=== PATIENT | female | born 1960 | race Caucasian/White ===

== ENCOUNTER → 2018-09-11 10:34 | Outpatient (CLI) | payer BC, SELFPAY ==
--- NOTE | 2018-09-11 10:38 | MM_ITS ---
1. Pancreatic gland is within years] MM Dig screening mamm BI w/CAD ORDERING PHYSICIAN : Jay Tompkins MD PATIENT AGE: 58 years GENDER: Female COMPARISON: August 2013,,, July 2012, 2011, June 2010 INDICATION: Routine: SCREENING no hormones. No new complaints. Noncontributory family history TECHNIQUE: Standard CC and MLO images were obtained. R2 CAD reviewed. The additional MLO view left breast included FINDINGS: No significant change. Mild/moderate residual fibroglandular elements most evident at the central superior breast. RIGHT BREAST:No new areas of significant concern Minor Area of mild asymmetric density towards the lateral left breast on cc view dissipates on the MLO view and has been seen before with bruising LEFT BREAST: No significant new areas of concern. Follow-up in one year bilateral IMPRESSION: Stable bilateral mammogram No significant new areas of concern Moderate breast density Follow-up in one year recommended BI-RADS Category: 2 Benign Finding(s) RECOMMENDED FOLLOW-UP: 1YR 1 YEAR FOLLOW-UP (A letter has been sent to the patient regarding results of the study.) July 2011, June 2010, 2009
== END ==
PROVIDERS: PCP Family Medicine; Visit Provider Family Medicine
DX: Z12.31 Encounter for screening mammogram for malignant neoplasm of breast (principal)
CPT/HCPCS: 77067

== ENCOUNTER → 2021-04-16 12:36 | Outpatient (CLI) | payer BC, SELFPAY | PROVIDERS: PCP Family Medicine; Visit Provider Nurse Practitioner | DX: Z20.822 Contact with and (suspected) exposure to COVID-19 (principal) | CPT/HCPCS: C9803; U0003; U0005 ==

== ENCOUNTER → 2021-06-22 10:13 | Outpatient (CLI) | payer BC, SELFPAY ==
--- NOTE | 2021-06-22 10:15 | MM_ITS ---
PROCEDURE INFORMATION: Exam: MG Bilateral Screening 3D Mammography Exam date and time: 06/22/2021 10:15 AM Age: 61 years old Clinical indication: Screening. No family history of breast cancer. TECHNIQUE: Imaging protocol: Bilateral Screening tomosynthesis and 2D mammography including computer-aided detection (CAD) when performed. COMPARISON: No relevant prior studies available. Prior mammogram report from 11/30/2018 is provided and reported as BI-RADS 2.If prior mammograms are provided, I am happy to add an addendum. FINDINGS: MAMMOGRAPHY: Breast composition: The breast tissue is composed of scattered areas of fibroglandular density. Mass: None. Architectural distortion: None. Calcifications: No suspicious calcifications. Asymmetric density: Possible 1.5 cm asymmetry in the left breast upper quadrant, anterior 3rd, MLO view only. Skin thickening: None. Axillary adenopathy: None. IMPRESSION: Comparison to prior mammogram would be most helpful. If this is not provided in 2 weeks, please recall for left diagnostic full field true lateral projection and left breast ultrasound, for further evaluation of possible left breast asymmetry. ASSESSMENT: BI-RADS Category 0: Incomplete- Need Additional Imaging Evaluation and/or Prior Mammograms for Comparison
== END ==
PROVIDERS: PCP Family Medicine; Visit Provider Family Medicine
DX: Z12.31 Encounter for screening mammogram for malignant neoplasm of breast (principal)
CPT/HCPCS: 77063; 77067

== ENCOUNTER → 2021-07-03 11:30 | Outpatient (CLI) | payer BC, SELFPAY ==
[2021-07-03 13:55] LABS: Microalbumin < 6.000 mg/L (0-16.7)
[2021-07-03 14:17] LABS: Chloride 103 mmol/L (98-107); Potassium 4.3 mmoL/L (3.5-5.1); Sodium 138 mmol/L (136-145)
[2021-07-03 14:20] LABS: Alanine Aminotransferase 28 U/L (12-78); Albumin Level 4.4 g/dl (3.5-5.0); Albumin/Globulin Ratio 1.7 (1.1-1.8); Alkaline Phosphatase 121 U/L (38-126); Anion Gap 11.3 mEq/L (5-15); Aspartate Amino Transferase 31 U/L (14-36); Bilirubin,Total 0.9 mg/dl (0.2-1.3); Blood Urea Nitrogen 11 mg/dl (7-17); Calcium 8.6 mg/dl (8.4-10.2); Carbon Dioxide 28 mmol/L (22.0-30.0); Cholesterol 126 mg/dl (140-200); Estimated Glomerular Filt Rate 102 ml/min (>60); GFR (African American) 123 ML/MIN (>60); Globulin 2.6 g/dL (1.3-3.2); Glucose 98 mg/dl (74-100); Triglycerides 65 mg/dl (30-150); VLDL Cholesterol 13 mg/dL (0-40)
[2021-07-03 14:21] LABS: Chol/HDL Ratio 2.2 (1-3.5); HDL Cholesterol 58 mg/dl (40-60)
[2021-07-03 14:31] LABS: Direct LDL Cholesterol 56.35 mg/dL (100-129)
[2021-07-03 16:08] LABS: Hemoglobin A1C 5.6 % (4.0-6.0)
== END ==
PROVIDERS: Visit Provider Family Medicine
DX: I10 Essential (primary) hypertension (principal); E78.5 Hyperlipidemia, unspecified; E11.9 Type 2 diabetes mellitus without complications; Z79.84 Long term (current) use of oral hypoglycemic drugs
CPT/HCPCS: 36415; 80053; 80061; 82043; 83036

== ENCOUNTER → 2021-07-06 14:37 | Outpatient (CLI) | payer BC, SELFPAY | PROVIDERS: PCP Family Medicine; Visit Provider Nurse Practitioner Family | DX: R92.8 Other abnormal and inconclusive findings on diagnostic imaging of breast (principal) ==

== ENCOUNTER → 2021-12-17 10:00 | Outpatient (CLI) | payer BC, SELFPAY ==
[2021-12-17 10:52] LABS: Alanine Aminotransferase 31 U/L (12-78); Albumin/Globulin Ratio 1.4 (1.1-1.8); Alkaline Phosphatase 142 U/L (38-126); Anion Gap 11.7 mEq/L (5-15); Aspartate Amino Transferase 33 U/L (14-36); Bilirubin,Total 0.4 mg/dl (0.2-1.3); Blood Urea Nitrogen 13 mg/dl (7-17); Calcium 9.6 mg/dl (8.4-10.2); Carbon Dioxide 29 mmol/L (22.0-30.0); Chloride 103 mmol/L (98-107); Chol/HDL Ratio 2.5 (1-3.5); Cholesterol 139 mg/dl (140-200); Estimated Glomerular Filt Rate 85 ml/min (>60); GFR (African American) 103 ML/MIN (>60); Globulin 2.8 g/dL (1.3-3.2); Glucose 123 mg/dl (74-100); HDL Cholesterol 55 mg/dl (40-60); Potassium 4.7 mmoL/L (3.5-5.1); Sodium 139 mmol/L (136-145); Total Protein,Serum 6.8 g/dl (6.3-8.2); Triglycerides 86 mg/dl (30-150); VLDL Cholesterol 17 mg/dL (0-40)
[2021-12-17 14:37] LABS: Hemoglobin A1C 5.5 % (4.0-6.0)
[2021-12-18 11:03] LABS: Direct LDL Cholesterol 71 mg/dL (100-129)
== END ==
PROVIDERS: PCP Family Medicine; Visit Provider Family Medicine
DX: I10 Essential (primary) hypertension (principal); E11.9 Type 2 diabetes mellitus without complications; E78.5 Hyperlipidemia, unspecified; Z79.84 Long term (current) use of oral hypoglycemic drugs
CPT/HCPCS: 36415; 80053; 80061; 83036

== ENCOUNTER → 2022-06-14 08:38 | Outpatient (CLI) | payer BC, SELFPAY ==
[2022-06-14 09:51] LABS: Chloride 104 mmol/L (98-107); Potassium 4.1 mmoL/L (3.5-5.1); Sodium 138 mmol/L (136-145)
[2022-06-14 09:53] LABS: Alanine Aminotransferase 25 U/L (12-78); Alkaline Phosphatase 110 U/L (38-126); Aspartate Amino Transferase 31 U/L (14-36); Bilirubin,Total 0.8 mg/dl (0.2-1.3); Blood Urea Nitrogen 15 mg/dl (7-17); Estimated Glomerular Filt Rate 85 ml/min (>60); GFR (African American) 103 ML/MIN (>60)
[2022-06-14 09:54] LABS: Albumin/Globulin Ratio 1.5 (1.1-1.8); Anion Gap 8.1 mEq/L (5-15); Carbon Dioxide 30 mmol/L (22.0-30.0); Chol/HDL Ratio 2.4 (1-3.5); Cholesterol 110 mg/dl (140-200); Globulin 2.6 g/dL (1.3-3.2); Glucose 116 mg/dl (74-100); HDL Cholesterol 45 mg/dl (40-60); Total Protein,Serum 6.6 g/dl (6.3-8.2); Triglycerides 78 mg/dl (30-150); VLDL Cholesterol 16 mg/dL (0-40)
[2022-06-14 10:05] LABS: Direct LDL Cholesterol 55.42 mg/dL (100-129)
[2022-06-14 10:22] LABS: Hemoglobin A1C 5.5 % (4.0-6.0)
== END ==
PROVIDERS: PCP Family Medicine; Visit Provider Family Medicine
DX: I10 Essential (primary) hypertension (principal); E11.9 Type 2 diabetes mellitus without complications; E78.5 Hyperlipidemia, unspecified; Z79.84 Long term (current) use of oral hypoglycemic drugs
CPT/HCPCS: 36415; 80053; 80061; 83036

== ENCOUNTER → 2022-06-25 15:59 | Outpatient (CLI) | payer BC, SELFPAY ==
--- NOTE | 2022-06-25 16:04 | MM_ITS ---
PROCEDURE INFORMATION: Exam: MG Bilateral Screening 3D Mammography Exam date and time: 06/25/2022 4:01 PM Age: 62 years old Clinical indication: Screening examination TECHNIQUE: Imaging protocol: Bilateral Screening tomosynthesis and 2D mammography including computer-aided detection (CAD) when performed. COMPARISON: 1. MG MM DIG SCREENING MAMM BI W/CAD 06/22/2021 10:12 AM 2. MG DIG MAMM-SCREEN NATAN 09/11/2018 11:02 AM FINDINGS: MAMMOGRAPHY: Breast composition: There are scattered areas of fibroglandular density. Mass: None. Architectural distortion: None. Calcifications: No suspicious calcifications. Asymmetric density: None. Skin thickening: None. Axillary adenopathy: None. IMPRESSION: No mammographic evidence of malignancy. Annual screening is recommended unless otherwise clinically indicated. ASSESSMENT: BI-RADS Category 1: Negative
== END ==
PROVIDERS: PCP Family Medicine; Visit Provider Family Medicine
DX: Z12.31 Encounter for screening mammogram for malignant neoplasm of breast (principal)
CPT/HCPCS: 77063; 77067

== ENCOUNTER → 2022-12-24 10:01 | Outpatient (CLI) | payer BC, SELFPAY ==
[2022-12-24 10:49] LABS: Hemoglobin A1C 5.8 % (4.0-6.0)
[2022-12-24 11:40] LABS: Alanine Aminotransferase 27 U/L (12-78); Albumin/Globulin Ratio 1.4 (1.1-1.8); Alkaline Phosphatase 146 U/L (38-126); Anion Gap 12.3 mEq/L (5-15); Aspartate Amino Transferase 29 U/L (14-36); Bilirubin,Total 0.6 mg/dl (0.2-1.3); Blood Urea Nitrogen 14 mg/dl (7-17); Carbon Dioxide 26 mmol/L (22.0-30.0); Chloride 105 mmol/L (98-107); Chol/HDL Ratio 2.9 (1-3.5); Cholesterol 119 mg/dl (140-200); Estimated Glomerular Filt Rate 85 ml/min (>60); GFR (African American) 103 ML/MIN (>60); Globulin 2.8 g/dL (1.3-3.2); Glucose 117 mg/dl (74-100); HDL Cholesterol 41 mg/dl (40-60); Potassium 4.3 mmoL/L (3.5-5.1); Sodium 139 mmol/L (136-145); Total Protein,Serum 6.8 g/dl (6.3-8.2); Triglycerides 84 mg/dl (30-150); VLDL Cholesterol 17 mg/dL (0-40)
[2022-12-24 11:51] LABS: Direct LDL Cholesterol 56.89 mg/dL (100-129)
== END ==
PROVIDERS: PCP Family Medicine; Visit Provider Family Medicine
DX: I10 Essential (primary) hypertension (principal); E78.5 Hyperlipidemia, unspecified; E11.9 Type 2 diabetes mellitus without complications; Z79.84 Long term (current) use of oral hypoglycemic drugs
CPT/HCPCS: 36415; 80053; 80061; 83036

== ENCOUNTER 2023-05-20 15:22 | Outpatient (POV) | payer BC, SELFPAY | END 2023-05-20 23:59 | disposition home or self-care (01) | LOC: SC 15:22 | PROVIDERS: PCP Family Medicine; Visit Provider Dermatology | DX: Z00.00 Encounter for general adult medical examination without abnormal findings (principal) ==

== ENCOUNTER 2023-07-03 09:30 | Outpatient (CLI) | payer BC, SELFPAY ==
[2023-07-03 10:54] LABS: Alanine Aminotransferase 32 U/L (12-78); Albumin Level 4.1 g/dl (3.5-5.0); Albumin/Globulin Ratio 1.6 (1.1-1.8); Alkaline Phosphatase 100 U/L (38-126); Aspartate Amino Transferase 34 U/L (14-36); Bilirubin,Total 0.9 mg/dl (0.2-1.3); Blood Urea Nitrogen 10 mg/dl (7-17); Calcium 9.9 mg/dl (8.4-10.2); Carbon Dioxide 27 mmol/L (22.0-30.0); Chloride 104 mmol/L (98-107); Chol/HDL Ratio 2.6 (1-3.5); Cholesterol 119 mg/dl (140-200); Estimated Glomerular Filt Rate 101 ml/min (>60); GFR (African American) 123 ML/MIN (>60); Globulin 2.5 g/dL (1.3-3.2); Glucose 120 mg/dl (74-100); HDL Cholesterol 45 mg/dl (40-60); Sodium 139 mmol/L (136-145); Total Protein,Serum 6.6 g/dl (6.3-8.2); Triglycerides 74 mg/dl (30-150); VLDL Cholesterol 15 mg/dL (0-40)
[2023-07-03 11:05] LABS: Direct LDL Cholesterol 57.39 mg/dL (100-129)
== END 2023-07-03 23:59 ==
LOC: LAB 09:31
PROVIDERS: PCP Family Medicine; Visit Provider Family Medicine
DX: I10 Essential (primary) hypertension (principal); E11.9 Type 2 diabetes mellitus without complications; E78.5 Hyperlipidemia, unspecified
CPT/HCPCS: 36415; 80053; 80061

== ENCOUNTER 2023-07-10 12:39 | Outpatient (CLI) | payer BC, SELFPAY ==
--- NOTE | 2023-07-10 12:43 | MM_ITS ---
PROCEDURE INFORMATION: Exam: MG Bilateral Screening 3D Mammography Exam date and time: 07/10/2023 12:57 PM Age: 63 years old Clinical indication: Screening examination TECHNIQUE: Imaging protocol: Bilateral Screening tomosynthesis and 2D mammography including computer-aided detection (CAD) when performed. COMPARISON: 1. MG MM DIG SCREENING MAMM BI W/CAD 06/25/2022 4:01 PM 2. MG MM DIG SCREENING MAMM BI W/CAD 06/22/2021 10:12 AM FINDINGS: MAMMOGRAPHY: Breast composition: There are scattered areas of fibroglandular density. Mass: None. Architectural distortion: None. Calcifications: No suspicious calcifications. Asymmetric density: None. Skin thickening: None. Axillary adenopathy: None. IMPRESSION: No mammographic evidence of malignancy. Annual screening is recommended unless otherwise clinically indicated. ASSESSMENT: BI-RADS Category 1: Negative
== END 2023-07-10 23:59 ==
LOC: RAD 12:39
PROVIDERS: PCP Family Medicine; Visit Provider Family Medicine
DX: Z12.31 Encounter for screening mammogram for malignant neoplasm of breast (principal)
CPT/HCPCS: 77063; 77067

== ENCOUNTER 2023-12-31 09:49 | Outpatient (CLI) | payer BC, SELFPAY ==
[2023-12-31 10:01] LABS: Microscopic, Urine URINE MICROSCOPIC (MICROSCOPIC)
[2023-12-31 10:39] LABS: Alanine Aminotransferase 31 U/L (12-78); Albumin Level 3.7 g/dl (3.5-5.0); Albumin/Globulin Ratio 1.3 (1.1-1.8); Alkaline Phosphatase 106 U/L (38-126); Anion Gap 7.1 mEq/L (5-15); Aspartate Amino Transferase 32 U/L (14-36); Bilirubin,Total 0.7 mg/dl (0.2-1.3); Blood Urea Nitrogen 10 mg/dl (7-17); Calcium 9.1 mg/dl (8.4-10.2); Carbon Dioxide 29 mmol/L (22.0-30.0); Chloride 104 mmol/L (98-107); Chol/HDL Ratio 2.4 (1-3.5); Cholesterol 119 mg/dl (140-200); Estimated Glomerular Filt Rate 101 ml/min (>60); GFR (African American) 123 ML/MIN (>60); Globulin 2.9 g/dL (1.3-3.2); Glucose 119 mg/dl (74-100); HDL Cholesterol 50 mg/dl (40-60); Potassium 4.1 mmoL/L (3.5-5.1); Sodium 136 mmol/L (136-145); Total Protein,Serum 6.6 g/dl (6.3-8.2); Triglycerides 92 mg/dl (30-150); VLDL Cholesterol 18 mg/dL (0-40)
[2023-12-31 10:40] LABS: Appearance,Urine CLEAR (Clear); Bilirubin,Urine Negative (Negative); Blood, Urine TRACE-I (Negative); Color,Urine YELLOW (Yellow); Glucose,Urine (UA) Negative (Negative); Ketones,Urine Negative (Negative); Leukocyte Esterase,Urine Negative (Negative); Nitrate,Urine Negative (Negative); PH,Urine 7.5 (5.0-8.5); Protein,Urine Negative (Negative); Urobilinogen,Urine 0.2 EU/dl (0.2)
[2023-12-31 10:51] LABS: Direct LDL Cholesterol 52.78 mg/dL (100-129)
[2023-12-31 11:04] LABS: Bacteria,Urine Trace /lpf; RBC,Urine Occasional #/hpf (0-3); Squamous Epithelial Cell,Urine Occasional #/hpf (0-5)
[2023-12-31 11:19] LABS: Hemoglobin A1C 5.7 % (4.0-6.0)
== END 2023-12-31 23:59 | disposition home or self-care (01) ==
LOC: LAB 09:50
PROVIDERS: PCP Family Medicine; Visit Provider Family Medicine
DX: E11.69 Type 2 diabetes mellitus with other specified complication (principal); E78.5 Hyperlipidemia, unspecified; I10 Essential (primary) hypertension; Z79.84 Long term (current) use of oral hypoglycemic drugs
CPT/HCPCS: 36415; 80053; 80061; 81001; 83036

== ENCOUNTER 2024-08-03 10:00 | Outpatient (CLI) | payer BC, SELFPAY ==
[2024-08-03 10:10] LABS: Microscopic, Urine URINE MICROSCOPIC (MICROSCOPIC)
[2024-08-03 11:10] LABS: Albumin Level 4.1 g/dl (3.5-5.0); Chloride 104 mmol/L (98-107); Sodium 138 mmol/L (136-145)
[2024-08-03 11:11] LABS: Potassium 4.3 mmoL/L (3.5-5.1)
[2024-08-03 11:13] LABS: Alanine Aminotransferase 28 U/L (12-78); Albumin/Globulin Ratio 1.6 (1.1-1.8); Alkaline Phosphatase 113 U/L (38-126); Anion Gap 12.3 mEq/L (5-15); Aspartate Amino Transferase 30 U/L (14-36); Bilirubin,Total 0.9 mg/dl (0.2-1.3); Blood Urea Nitrogen 9 mg/dl (7-17); Calcium 8.8 mg/dl (8.4-10.2); Carbon Dioxide 26 mmol/L (22.0-30.0); Cholesterol 113 mg/dl (140-200); Estimated Glomerular Filt Rate 85 ml/min (>60); GFR (African American) 102 ML/MIN (>60); Globulin 2.6 g/dL (1.3-3.2); Glucose 111 mg/dl (74-100); Total Protein,Serum 6.7 g/dl (6.3-8.2); Triglycerides 78 mg/dl (30-150); VLDL Cholesterol 16 mg/dL (0-40)
[2024-08-03 11:14] LABS: Chol/HDL Ratio 2.1 (1-3.5); HDL Cholesterol 54 mg/dl (40-60)
[2024-08-03 11:17] LABS: Appearance,Urine CLEAR (Clear); Bilirubin,Urine Negative (Negative); Blood, Urine Negative (Negative); Color,Urine YELLOW (Yellow); Glucose,Urine (UA) Negative (Negative); Ketones,Urine Negative (Negative); Leukocyte Esterase,Urine Negative (Negative); Nitrate,Urine Negative (Negative); PH,Urine 7.5 (5.0-8.5); Protein,Urine Negative (Negative); Specific Gravity, Urine 1.015 (1.005-1.030); Urobilinogen,Urine 0.2 EU/dl (0.2)
[2024-08-03 11:25] LABS: Direct LDL Cholesterol 42.78 mg/dL (100-129)
[2024-08-03 11:37] LABS: Hemoglobin A1C 5.6 % (4.0-6.0)
== END 2024-08-03 23:59 | disposition home or self-care (01) ==
LOC: LAB 10:02
PROVIDERS: PCP Family Medicine; Visit Provider Family Medicine
DX: E78.5 Hyperlipidemia, unspecified (principal); E11.9 Type 2 diabetes mellitus without complications; I10 Essential (primary) hypertension
CPT/HCPCS: 36415; 80053; 80061; 81001; 83036

== ENCOUNTER 2024-12-27 15:42 | Outpatient (CLI) | payer BC, SELFPAY ==
--- OUTSIDE RECORDS SUMMARY | 2023-12-11 09:30 | XMS_ITS ---
Author Organization [facility] Address [address] [place] [id number] Care Team Providers Care Corn Husker Name Role Phone Kendy Tompkins Primary Care Provider Allergies No Known Allergies Results Component Value Reference Range Notes H-Lipid Panel Reviewed date:12/31/2023 03:39:50 PM Interpretation:see 12/31/23 Performing Lab: Notes/Report: see 12/31/23 H-CMP Reviewed date:12/31/2023 03:39:37 PM Interpretation:see 12/31/23 Performing Lab: Notes/Report: see 12/31/23 H-Glycohemoglobin A1C Reviewed date:12/31/2023 03:39:24 PM Interpretation:see 12/31/23 Performing Lab: Notes/Report: see 12/31/23 REASON FOR VISIT 6 months Medications Medication SIG (Take, Route, Frequency, Duration) Notes Start Date End Date Status Omeprazole 40 MG 1 cap(s) orally once a day prn Active Olmesartan Medoxomil 40 MG 1 tab(s) oral ly once a day Active OneTouch Ultra DIRECTED 09/17/2016 Ac tive metFORMIN HCl ER 500 MG 1 tab(s) orally once a day Active Metoprolol Tartrate 25 MG 1 tab(s) orall y Two times a day Active Eliquis 5 MG Take 1 tablet by ania twice daily for 90 days; Duration: 90 Active Atorvastatin Calcium 40 MG 1 tab(s) oral ly once a day Active Problems Problem Type SNOMED Code ICD Code Onset Dates Problem Status W/U Status Risk Notes Problem Type 2 diabetes mellitus with other specified complication (E11.69) Active confirmed Vital Signs Blood pressure systolic 124 mm Hg 12/11/19 24 Blood pressure diastolic 68 mm Hg 024 Heart Rate 66 /min 12/11/2023 Height 62 in 12/11/2023 Weight 202.8 lbs 12/11/2023 BMI 37.09 kg/m2 12/11/2023 Encounters Encounter Location Date Provider Diagnosis [facility] [address] [facility] [address], [place] [id number] 12/11/2023 Kendy Tompkins Type 2 diabetes chon itus with other specified complication E11.69 ; Essential hypertension I10 ; Type 2 diabetes mellitus without complication, without long-term current use of insulin E11.9 ; Dyslipidemia E78.5 ; Gastroesophageal reflux disease without esophagitis K21.9 ; History of CVA (cerebrovascular accident) Z86.73 and PFO (patent foramen ovale) Q21.1 Assessments Encounter Date Diagnosis (ICD Code) Assessment Notes Treatment Notes Treatment Clinical Notes Section Notes 12/11/2023 Type 2 diabetes mellitus with other specified complication (ICD-10 - E11.69) 12/11/2023 Essential hypertension (ICD-10 - I10) 12/11/2023 Type 2 diabetes mellitus without complication, without long-term current use of insulin (ICD-10 - E11.9) 12/11/2023 Dyslipidemia (ICD-10 - E78.5) 12/11/2023 Gastroesophageal reflux disease without esophagitis (ICD-10 - K21.9) 12/11/2023 History of CVA (cerebrovascular accident) (ICD-10 - Z86.73) 12/11/2023 PFO (patent foramen ovale) (ICD-10 - Q21.1) Plan Of Treatment Medication Medication Name Sig Start Date Stop Date Notes Omeprazole 40 MG 1 cap(s) orally once a day prn Olmesartan Medoxomil 40 MG 1 tab(s) orally once a day metFORMIN HCl ER 500 MG 1 tab(s) orally once a day Metoprolol Tartrate 25 MG 1 tab(s) orally Two times a day Atorvastatin Calcium 40 MG 1 tab(s) orally once a day Pending Test Test Name Order Date H-Microalbumine/Creatinine 12/11/2023 Next Appt Details Follow Up: 6 Months, Reason: Provider Name:Kendy Sutton, 06/21/2025 01:45:00 PM, [address], [address], [place], [id number], Progress Notes * RAMSES ZUÑIGADOB:1960 (64 yo F)Acc No.[id number]:12/11/2023 Progress Notes Patient: RAMSES CAMACHO Provider: Kendy Tompkins M.D. :1960 A ge:63 Y S ex:Female Date:12/11/2023 Address:[facility] [address], [place], [place] Subjective: * Chief Complaints: * 1 . 6 months. * HPI: C ardiology: Pt is here for ck/up. Pt is not fasting. Denies : Chest Pain. D enies : Short of Breath. D enies : Palpitations. States BP checks at home are consistently normal. E ndocrinology: She has been more compliant with diet but not successful with weight loss. She is not checking her blood sugar regularly at home. D ermatology: Since her last visit, she has had a basal cell carcinoma removed from the tip of her nose. This required a skin graft for closure. She has done well. * ROS: C ARDIOLOGY: no D izziness. n o C hest pain. G ASTROENTEROLOGY: no N ausea. n o V omiting. U ROLOGY: no D ifficulty urinating. n o B lood in urine. * Medical History: H ypertension, GERD, Type 2 Diabetes, Hyperlipidemia, Lt MCA Stroke - [facility], PFO- [facility], Declines repeat C-scope: 11/2021; 05/2022, Declines BMD - 05/2022. * Surgical History: R T Forearm Fatty Tumor Removed 2000, C-scope/ Dr. Whaley 2014, Basal cell carcinoma skin graft on tip of nose - 05/2023. * Hospitalization/Major Diagno stic Procedure: S troke, Paroxysmal A Fib 05/2019. * Family History: F ather: alive 82 yrs, diagnosed with Diabetes, Hypertension. M other: , low potassium, heart attack, diagnosed with Diabetes, Hypertension. 1 sister(s) . 1 son(s) . . Deacesed Brother- Lung Cancer, Sister- Diabetes. * Social History: C URRENT TOBACCO USE: No . C affeine: no, frequency:. Home smoke detector use: yes. Alcohol: No. * Medications: T aking OneTouch Ultra DIRECTED , Taking Atorvastatin Calcium 40 MG Tablet 1 tab(s) orally once a day , Taking metFORMIN HCl ER 500 MG Tablet Extended Release 24 Hour 1 tab(s) orally once a day , Taking Metoprolol Tartrate 25 MG Tablet 1 tab(s) orally Two times a day , Taking Olmesartan Medoxomil 40 MG Tablet 1 tab(s) orally once a day , Taking Omeprazole 40 MG Capsule Delayed Release 1 cap(s) orally once a day prn , Taking Eliquis 5 MG Tablet Take 1 tablet by mouth twice daily for 90 days , Medication List reviewed and reconciled with the patient * Allergies: N .K.D.A. Objective: * Vitals: W t:202.8, Temp:98.4, BP:124/68, HR:66, Nurse:JASE, Ht: 62, BMI:37.09. * Examination: C ardiology: General Appearance: p leasant, NAD. Weight loss noted. H EENT: s clera and conjunctiva clear, PERRLA, TM's normal, translucent. C arotid upstroke: n ormal, no bruits. H eart sounds: R RR, normal S1, S2. M urmur, click , gallop: n one. L ungs: c lear, no rales or wheezes. A bdomen: p ositive BS, soft, nontender. E xtremities: n o leg edema. Assessment: * Assessment: 1. T ype 2 diabetes mellitus with other specified complication - E11.69 (Primary) ?2. E ssential hypertension - I10 3 . T ype 2 diabetes mellitus without complication, without long-term current use of insulin - E11.9 4 . D yslipidemia - E78.5 5 . G astroesophageal reflux disease without esophagitis - K21.9 ? 6 . H istory of CVA (cerebrovascular accident) - Z86.73 7 . P FO (patent foramen ovale) - Q21.1 Plan: * Treatment: 2. T ype 2 diabetes mellitus without complication, without long-term current use of insulin Refill metFORMIN HCl ER Tablet Extended Release 24 Hour, 500 MG, 1 tab(s), orally, once a day, 90, Refills 1. 3. D yslipidemia Refill Atorvastatin Calcium Tablet, 40 MG, 1 tab(s), orally, once a day, 90, Refills 1. 4. G astroesophageal reflux disease without esophagitis Refill Omeprazole Capsule Delayed Release, 40 MG, 1 cap(s), orally, once a day prn, 90, Refills 1.? * Labs: * L ab: H-Microalbumine/Creatinine L ab: H-Lipid Panel (Collection Date & Time - 12/31/2023) s ee 12/31/23 L ab: H-CMP (Collection Date & Time - 12/31/2023) s ee 12/31/23 L ab: H-Glycohemoglobin A1C (Collection Date & Time - 12/31/2023) s ee 12/31/23 * Follow Up: 6 Months * Images: Billing Information: * Visit Code: 72263 Office Visit, Est Pt., Level 4. * Procedure Codes: * Electronic signature of Kendy Tompkins MD on 12/27/2024 at 03:44 PM EDT Sign off status: Pending * Provider: Kendy Tompkins M.D. Date: 0 12/11/2023 Generated for Nixoni ng/Nicoleg/eTransmitting on: 0 12/27/2024 03:44 PM EDT History and Physical Notes * HPI (History of Present Illness) Category Sub-Category Detail Notes Category Not es Cardiology Short of Breath States BP ch ecks at home are consistently normal Chest Pain Palpitations Examination Category Sub-Category Detail Notes Category Not es Cardiology Lungs: clear, no rales or wheezes HEENT: sclera and conjuncti va clear, PERRLA, TM's normal, translucent Heart sounds: RRR, normal S1, S2 Abdomen: positive BS, soft, n ontender Carotid upstroke: normal, no bruits Extremities: no leg edema Murmur, click , gallop: none General Appearance: pleasant, NAD. Weigh t loss noted
--- OUTSIDE RECORDS SUMMARY | 2024-06-17 09:30 | XMS_ITS ---
Author Organization [facility] Address [address] [place] [id number] Care Team Providers Care Hotel Operations Manager Name Role Phone Kendy Tompkins Primary Care Provider Allergies No Known Allergies Results Component Value Reference Range Notes H-Lipid Panel Reviewed date:08/04/2024 12:33:29 PM Interpretation: Performing Lab: Notes/Report: H-CMP Reviewed date:08/04/2024 12:33:14 PM Interpretation: Performing Lab: Notes/Report: H-Glycohemoglobin A1C Reviewed date:08/04/2024 12:32:58 PM Interpretation: Performing Lab: Notes/Report: REASON FOR VISIT 6 months Medications Medication SIG (Take, Route, Frequency, Duration) Notes Start Date End Date Status metFORMIN HCl ER 500 MG 1 tab(s) orally once a day Active Atorvastatin Calcium 40 MG 1 tab(s) oral ly once a day Active Eliquis 5 MG Take 1 tablet by [facility] twice daily for 90 days; Duration: 90 days Active Metoprolol Tartrate 25 MG 1 tab(s) orall y Two times a day Active OneTouch Ultra DIRECTED 09/17/2016 Ac tive Omeprazole 40 MG 1 cap(s) orally once a day prn Active Olmesartan Medoxomil 40 MG 1 tab(s) oral ly once a day Active Vital Signs Blood pressure systolic 138 mm Hg 06/17/19 25 Blood pressure diastolic 68 mm Hg 025 Heart Rate 71 /min 06/17/2024 Height 62 in 06/17/2024 Weight 201.8 lbs 06/17/2024 BMI 36.91 kg/m2 06/17/2024 Encounters Encounter Location Date Provider Diagnosis [facility] [address] [facility] [address] [place] [id number] 06/17/2024 Kendy Tompkins Type 2 diabetes chon itus [...] Treatment Notes Treatment Clinical Notes Section Notes 06/17/2024 Type 2 diabetes mellitus with other specified complication (ICD-10 - E11.69) 06/17/2024 Essential hypertension (ICD-10 - I10) 06/17/2024 Type 2 diabetes mellitus without complication, without long-term current use of insulin (ICD-10 - E11.9) 06/17/2024 Dyslipidemia (ICD-10 - E78.5) 06/17/2024 Gastroesophageal reflux disease without esophagitis (ICD-10 - K21.9) 06/17/2024 History of CVA (cerebrovascular accident) (ICD-10 - Z86.73) 06/17/2024 PFO (patent foramen ovale) (ICD-10 - Q21.1) Plan Of Treatment Medication Medication Name Sig Start Date Stop Date Notes metFORMIN HCl ER 500 MG 1 tab(s) orally once a day Atorvastatin Calcium 40 MG 1 tab(s) orally once a day Metoprolol Tartrate 25 MG 1 tab(s) orally Two times a day Omeprazole 40 MG 1 cap(s) orally once a day prn Olmesartan Medoxomil 40 MG 1 tab(s) orally once a day Pending Test Test Name Order Date H-Microalbumine/Creatinine 06/17/2024 Next Appt Details Follow Up: 6 Months, Reason: Provider Name:Kendy Sutton, 06/21/2025 01:45:00 PM, [address] [facility], [address], [place], [phone], Progress Notes * ANDREI ZUÑIGA:1960 (64 yo F)Acc No.[id number]:06/17/2024 Progress Notes Patient: RAMSES CAMACHO Provider: Kendy Tompkins M.D. :1960 A ge:64 Y S ex:Female Date:06/17/2024 Address:[address] [place] [address], [place], [place] Subjective: * Chief Complaints: * 1 . 6 months. * HPI: H PI: 64 year old female presents with c/o Patient is here today for?Pt is here today for a scheduled 6 month check up. She is not fasting. E ndocrinology: Blood sugar checks at home been consistently normal. Denies : Weight Gain. D enies : Nocturia. D enies : Polyuria. C ardiology: Blood pressure readings at home are normal. Denies : Chest Pain. D enies : Short of Breath. D enies : Palpitations. D enies : Leg Edema. G astroenterology: She is only using her omeprazole rarely as needed. * ROS: C ARDIOLOGY: no D izziness. [...] Allergies: N .K.D.A. Objective: * Vitals: W t:201.8, Temp:98.7, BP:138/68, HR:71, O2 Sat:99% on RA, Nurse:keyon, Ht: 62, BMI:36.91. * Examination: C ardiology: General Appearance: p leasant, NAD. . C arotid upstroke: n ormal, no bruits. [...] 4. G astroesophageal reflux disease without esophagitis Continue Omeprazole Capsule Delayed Release, 40 MG, 1 cap(s), orally, once a day prn. * Labs: * L ab: H-Lipid Panel (Collection Date & Time - 08/04/2024) ?Lab: H-CMP (Collection Date & Time - 08/04/2024)* see duplicate order ?Lab: H-Glycohemoglobin A1C (Collection Date & Time - 08/04/2024)* see duplicate order ?Lab: H-Microalbumine/Creatinine * Procedure Codes: 3 075F SYST BP GE 130 - 139MM HG, 3078F DIAST BP < 80 MM HG * Follow Up: 6 Months * Images: Billing Information: * Visit Code: 35178 Office Visit, Est Pt., Level 4. * Procedure Codes: 3075F SYST BP GE 130 - 139MM HG. 3078F DIAST BP < 80 MM HG. * Electronic signature of Kendy Tompkins MD on 12/27/2024 at 03:44 PM EDT Sign off status: Pending * Provider: Kendy Tompkins M.D. Date: 0 06/17/2024 Generated for Darrell padron/Jalen/Cierraitting on: 0 12/27/2024 03:44 PM EDT History and Physical Notes * HPI (History of Present Illness) Category Sub-Category Detail Notes Category Not es Endocrinology Weight Gain Polyuria Nocturia Cardiology Short of Breath Chest Pain Palpitations Leg Edema HPI Patient is here today for Pt is here today for a scheduled 6 month check up. She is not fasting Examination Category Sub-Category Detail Notes Category Not es Cardiology Lungs: clear, no rales or wheezes HEENT: Heart sounds: RRR, normal S1, S2 Abdomen: positive BS, soft, n ontender Carotid upstroke: normal, no bruits Extremities: no leg edema Murmur, click , gallop: none General Appearance: pleasant, NAD.
--- OUTSIDE RECORDS SUMMARY | 2024-12-16 09:30 | XMS_ITS ---
[facility] Address [address] [facility] [address] [facility] [address] [place] [id number] Care Team Providers Care Custom Shoemaker Name Role Phone Kendy Tompkins Primary Care Provider Allergies No Known Allergies REASON FOR VISIT 6 month check, Needs labs, mammogram, bone density screening, colon cancer screening, diabetic eye exam, & Tdap Medications Medication SIG (Take, Route, Frequency, Duration) Notes Start Date End Date Status Eliquis 5 MG Take 1 tablet by ania th twice daily; Duration: 90 Active Olmesartan Medoxomil 40 MG 1 tab(s) orally once a day Active Metoprolol Tartrate 25 MG 1 tab(s) orall y Two times a day Active Omeprazole 40 MG TAKE 1 CAPSULE BY MO UTH ONCE DAILY NEEDED; Duration: 90 Not-Taking Omeprazole 40 MG 1 cap(s) orally once a day prn Active metFORMIN HCl ER 500 MG 1 tab(s) orally once a day Active Atorvastatin Calcium 40 MG 1 tab(s) orally once a day Active OneTouch Ultra DIRECTED 09/17/2016 Ac tive Vital Signs Blood pressure systolic 128 mm Hg 12/17/19 25 Blood pressure diastolic 68 mm Hg 025 Heart Rate 68 /min 12/16/2024 Height 62 in 12/16/2024 Weight 204.2 lbs 12/16/2024 BMI 37.34 kg/m2 12/16/2024 Encounters Encounter Location Date Provider Diagnosis [facility] [address] [facility] [address] [facility] [address] [place] [id number] 12/16/2024 R Ag Leda Type 2 diabetes chon itus with other specified complication E11.69 ; Essential hypertension I10 ; Type 2 diabetes mellitus without complication, without long-term current use of insulin E11.9 ; Dyslipidemia E78.5 ; Gastroesophageal reflux disease without esophagitis K21.9 ; History of CVA (cerebrovascular accident) Z86.73 ; PFO (patent foramen ovale) Q21.1 and Breast cancer screening Z12.39 Assessments Encounter Date Diagnosis (ICD Code) Assessment Notes Treatment Notes Treatment Clinical Notes Section Notes 12/16/2024 Type 2 diabetes mellitus with other specified complication (ICD-10 - E11.69) 12/16/2024 Essential hypertension (ICD-10 - I10) 12/16/2024 Type 2 diabetes mellitus without complication, without long-term current use of insulin (ICD-10 - E11.9) 12/16/2024 Dyslipidemia (ICD-10 - E78.5) 12/16/2024 Gastroesophageal reflux disease without esophagitis (ICD-10 - K21.9) 12/16/2024 History of CVA (cerebrovascular accident) (ICD-10 - Z86.73) 12/16/2024 PFO (patent foramen ovale) (ICD-10 - Q21.1) 12/16/2024 Breast cancer screening (ICD-10 - Z12.39) Plan Of Treatment Medication Medication Name Sig Start Date Stop Date Notes Olmesartan Medoxomil 40 MG 1 tab(s) orally once a day Metoprolol Tartrate 25 MG 1 tab(s) orally Two times a day Omeprazole 40 MG 1 cap(s) orally once a day prn metFORMIN HCl ER 500 MG 1 tab(s) orally once a day Atorvastatin Calcium 40 MG 1 tab(s) orally once a day Pending Test Test Name Order Date Mammogram 12/16/2024 H-TSH 12/16/2024 H-Lipid Panel 12/16/2024 H-CMP 12/16/2024 H-Glycohemoglobin A1C 12/16/2024 Next Appt Details Follow Up: 6 Months, Reason: Provider Name:Kendy Sutton, 06/21/2025 01:45:00 PM, [address] [facility], [address], [place], [phone], Progress Notes * ANDREI ZUÑIGA:1960 (64 yo F)Acc No.[id number]:12/16/2024 Progress Notes Patient: RAMSES CAMACHO Provider: Kendy Tompkins M.D. :1960 A ge:64 Y S ex:Female Date:12/16/2024 Address:[address] [place] [address], [place] [address] Subjective: * Chief Complaints: * 1 . 6 month check. 2. Needs labs, mammogram, bone density screening, colon cancer screening, diabetic eye exam, & Tdap. * HPI: H PI: 64 year old female presents with c/o Patient is here today for?Pt is here today for a 6 month check up. Pt sts she is doing well and has no concerns at this time. * ROS: D ERMATOLOGY: no R jose. n o H lyric. G ASTROENTEROLOGY: no N ausea. n o V omiting. n o D iarrhea.? U ROLOGY: no D ifficulty urinating. n [...] F ather: alive 82 yrs, diagnosed with Hypertension, Diabetes. M other: , low potassium, heart attack, diagnosed with Hypertension, Diabetes. 1 sister(s) . 1 son(s) . . [...] tab(s) orally once a day , Taking Eliquis 5 MG Tablet Take 1 tablet by mouth twice daily , Not-Taking Omeprazole 40 MG Capsule Delayed Release TAKE 1 CAPSULE BY MOUTH ONCE DAILY NEEDED , Medication List reviewed and reconciled with the patient * Allergies: N .K.D.A. Objective: * Vitals: W t: 204.2, Temp: 98.7, BP: 128/68, HR: 68, O2 Sat: 94% on RA, Nurse: [facility], Ht: 62, BMI:37.34. * Examination: C ardiology: General Appearance: p [...] P FO (patent foramen ovale) - Q21.1 8 . B reast cancer screening - Z12.39 ? Plan: * Treatment: 2. T ype 2 [...] 1 cap(s), orally, once a day prn. 5. B reast cancer screening I maging: Mammogram * Labs: * L ab: H-Lipid Panel L ab: H-CMP L ab: H-TSH L ab: H-Glycohemoglobin A1C * Follow Up: 6 Months * Images: Billing Information: * Visit Code: 04148 Office Visit, Est Pt., Level 4. * Procedure Codes: * Electronic signature of Kendy Tompkins MD on 12/27/2024 at 03:43 PM EDT Sign off status: Pending * Provider: Kendy Tompkins M.D. Date: 0 12/16/2024 Generated for Darrell padron/Jalen/Cecilia on: 0 12/27/2024 03:43 PM EDT History and Physical Notes * HPI (History of Present Illness) Category Sub-Category Detail Notes Category Not es HPI Patient is here today for Pt is here today for a 6 month check up. Pt sts she is doing well and has no concerns at this time Examination Category Sub-Category Detail Notes Category Not es Cardiology Lungs: clear, no rales or wheezes HEENT: Heart sounds: RRR, normal S1, S2 Abdomen: positive BS, soft, n ontender Carotid upstroke: normal, no bruits Extremities: no leg edema Murmur, click , gallop: none General Appearance: pleasant, NAD.
--- NOTE | 2024-12-27 15:44 | MM_ITS ---
PROCEDURE INFORMATION: Exam: MG Bilateral Screening 3D Mammography Exam date and time: 12/27/2024 3:51 PM Age: 64 years old Clinical indication: Screening examination TECHNIQUE: Imaging protocol: Bilateral Screening tomosynthesis and 2D mammography including computer-aided detection (CAD) when performed. COMPARISON: 1. MG MM DIG SCREENING MAMM BI W/CAD 07/10/2023 12:57 PM 2. MG MM DIG SCREENING MAMM BI W/CAD 06/25/2022 4:01 PM FINDINGS: MAMMOGRAPHY: Breast composition: There are scattered areas of fibroglandular density. Mass: None. Architectural distortion: None. Calcifications: No suspicious calcifications. Asymmetric density: None. Skin thickening: None. Axillary adenopathy: None. IMPRESSION: No mammographic evidence of malignancy. Annual screening is recommended unless otherwise clinically indicated. ASSESSMENT: BI-RADS Category 1: Negative.
--- OUTSIDE RECORDS SUMMARY | 2024-12-27 15:44 | XMS_ITS | Patient Health Record ---
[facility] [address] [place] [id number] Care Team Providers Care Supervisor [employer] Name Role Phone Kendy Tompkins Primary Care Provider Allergies No Known Allergies Results Component Value Reference Range Notes H-Lipid Panel Reviewed date:08/04/2024 12:33:29 PM Interpretation: Performing Lab: Notes/Report: H-CMP Reviewed date:08/04/2024 12:33:14 PM Interpretation: Performing Lab: Notes/Report: H-Glycohemoglobin A1C Reviewed date:08/04/2024 12:32:58 PM Interpretation: Performing Lab: Notes/Report: H-Glycohemoglobin A1C Reviewed date:08/05/2024 08:37:04 AM Interpretation:Normal Performing Lab: Notes/Report: HGBA1C 5.6 4.0-6.0 % < 6% Non-Diabetic Level < 7% Controlled Diabetic Level > 8% Poorly Controlled Diabetic Level H-CMP Reviewed date:08/05/2024 08:37:04 AM Interpretation:gluc 111 Performing Lab: Notes/Report: NA 138 136-145 mmol/L K 4.3 3.5-5.1 mmoL/L CL 104 98-107 mmol/L CO2 26 22.0-30.0 mmol/L GAP 12.3 5-15 mEq/L BUN 9 7-17 mg/dl CREATT 0.70 0.52-1.04 mg/dl GFRAA 102 >60 ML/MIN EGFR 85 >60 ml/min GLU 111 74-100 mg/dl CA 8.8 8.4-10.2 mg/dl BILIT 0.9 0.2-1.3 mg/dl AST 30 14-36 U/L ALT 28 12-78 U/L TP 6.7 6.3-8.2 g/dl ALB 4.1 3.5-5.0 g/dl GLOB 2.6 1.3-3.2 g/dL AGRATIO 1.6 1.1-1.8 ALP 113 38-126 U/L H-Lipid Panel Reviewed date:08/05/2024 08:37:04 AM Interpretation:chol 113, dldl 42.78 Performing Lab: Notes/Report: Patient Fasting? N TRIG 78 30-150 mg/dl CHOL 113 140-200 mg/dl DLDL 42.78 100-129 mg/dL VLDL 16 0-40 mg/dL HDL 54 40-60 mg/dl CHLHDL 2.1 1-3.5 H-UA Reviewed date:08/05/2024 08:37:04 AM Interpretation:Normal Performing Lab: Notes/Report: UCOL YELLOW Yellow UAPP CLEAR Clear UPH 7.5 5.0-8.5 USG 1.015 1.005-1.030 UPRO Negative Negative UGLU Negative Negative UKET Negative Negative UBLD Negative Negative UNIT Negative Negative UBIL Negative Negative UURO 0.2 0.2 EU/dl ULEU Negative Negative UMICU URINE MICROSCOPIC MICROSCOPIC URBC None 0-3 #/hpf UWBC None 0-3 #/hpf USQEPI None 0-5 #/hpf UBACT None NONE /lpf H-UA Reviewed date:01/01/2024 08:42:48 AM Interpretation: Performing Lab: Notes/Report: UCOL YELLOW Yellow UAPP CLEAR Clear UPH 7.5 5.0-8.5 USG 1.010 1.005-1.030 UPRO Negative Negative UGLU Negative Negative UKET Negative Negative UBLD TRACE-I Negative UNIT Negative Negative UBIL Negative Negative UURO 0.2 0.2 EU/dl ULEU Negative Negative UMICU URINE MICROSCOPIC MICROSCOPIC URBC Occasional 0-3 #/hpf UWBC None 0-3 #/hpf USQEPI Occasional 0-5 #/hpf UBACT Trace NONE /lpf H-Lipid Panel Reviewed date:01/01/2024 08:42:48 AM Interpretation:chol 119, dldl 53 Performing Lab: Notes/Report: Patient Fasting? Y TRIG 92 30-150 mg/dl CHOL 119 140-200 mg/dl DLDL 52.78 100-129 mg/dL VLDL 18 0-40 mg/dL HDL 50 40-60 mg/dl CHLHDL 2.4 1-3.5 H-CMP Reviewed date:01/01/2024 08:42:48 AM Interpretation:gluc 119 Performing Lab: Notes/Report: NA 136 136-145 mmol/L K 4.1 3.5-5.1 mmoL/L CL 104 98-107 mmol/L CO2 29 22.0-30.0 mmol/L GAP 7.1 5-15 mEq/L BUN 10 7-17 mg/dl CREATT 0.60 0.52-1.04 mg/dl GFRAA 123 >60 ML/MIN EGFR 101 >60 ml/min GLU 119 74-100 mg/dl CA 9.1 8.4-10.2 mg/dl BILIT 0.7 0.2-1.3 mg/dl AST 32 14-36 U/L ALT 31 12-78 U/L TP 6.6 6.3-8.2 g/dl ALB 3.7 3.5-5.0 g/dl GLOB 2.9 1.3-3.2 g/dL AGRATIO 1.3 1.1-1.8 ALP 106 38-126 U/L H-Glycohemoglobin A1C Reviewed date:01/01/2024 08:42:48 AM Interpretation:5.7 Performing Lab: Notes/Report: HGBA1C 5.7 4.0-6.0 % < 6% Non-Diabetic Level < 7% Controlled Diabetic Level > 8% Poorly Controlled Diabetic Level Reason For Referral No Information Medications Medication SIG (Take, Route, Frequency, Duration) Notes Start Date End Date Status metFORMIN HCl ER 500 MG 1 tab(s) orally once a day Active Atorvastatin Calcium 40 MG 1 tab(s) orally once a day Active Olmesartan Medoxomil 40 MG 1 tab(s) orally once a day Active Eliquis 5 MG Take 1 tablet by ania twice daily; Duration: 90 Active Metoprolol Tartrate 25 MG 1 tab(s) orall y Two times a day Active Omeprazole 40 MG TAKE 1 CAPSULE BY MO UTH ONCE DAILY NEEDED; Duration: 90 Not-Taking Omeprazole 40 MG 1 cap(s) orally once a day prn Active OneTouch Ultra DIRECTED 09/17/2016 Ac tive Immunizations Vaccine Route Administration Date Status Comme nts Shingrix Unknown 04/17/2022 Administered Shingrix Unknown 06/28/2022 Administered Prevnar (PCV20) Unknown 09/11/2021 Administered PNEUMOVAX 23 VACCINE Unknown 03/10/2020 Administered Fluzone Quad (6months&older) IM Intramuscular 02/12/2019 Administered Fluzone Quad (6months&older) Unknown 12/19/2020 Administered Fluzone PF Quad (6-35 months) Unknown 12/30/2019 Administered Fluzone PF Quad (6-35 months) Unknown 02/10/2022 Administered COVID 19 Moderna Unknown 06/21/2020 Administered COVID 19 Moderna Unknown 07/19/2020 Administered COVID 19 Moderna Unknown 02/10/2021 Administered COVID 19 Moderna Unknown 07/31/2021 Administered Problems Problem Type SNOMED Code ICD Code Onset Dates Problem Status W/U Status Risk Notes Problem Essential hypertension (15319195) Essential hypertension (I10) Active confirmed Problem History of cerebrovascular accident without residual deficits (054479511) History of CVA (cerebrovascular accident) (Z86.73) Active confirmed Problem Type 2 diabetes mellitus with other specified complication (E11.69) Active confirmed Problem Gastroesophageal reflux disease without esophagitis (605361370) Gastroesophageal reflux disease without esophagitis (K21.9) Active confirmed Problem Body mass index 40+ - morbidly obese (245214565) BMI 40.0-44.9, adult (Z68.41) Active confirmed Problem Dyslipidemia (576416601) Dyslipidemia (E78.5) Active confirmed Problem Type II diabetes mellitus without complication (856195590) Type 2 diabetes mellitus without complication, without long-term current use of insulin (E11.9) Active confirmed Problem Patent foramen ovale (disorder) (489700226) PFO (patent foramen ovale) (Q21.1) Active confirmed Vital Signs Heart Rate 68 /min 12/16/2024 Blood pressure diastolic 68 mm Hg 12/16/2024 Height 62 in 12/16/2024 Blood pressure systolic 128 mm Hg 12/16/2024 Weight 204.2 lbs 12/16/2024 BMI 37.34 kg/m2 12/16/2024 Encounters Encounter Location Date Provider Diagnosis [facility] [facility] [address] [place] [id number] 06/17/2024 Kendy Tompkins Type 2 diabetes chon itus with other specified complication E11.69 ; Essential hypertension I10 ; Type 2 diabetes mellitus without complication, without long-term current use of insulin E11.9 ; Dyslipidemia E78.5 ; Gastroesophageal reflux disease without esophagitis K21.9 ; History of CVA (cerebrovascular accident) Z86.73 and PFO (patent foramen ovale) Q21.1 [place] [address] [facility] [address] [place] [id number] 12/16/2024 Kendy Tompkins Type 2 diabetes chon itus with other specified complication E11.69 ; Essential hypertension I10 ; Type 2 diabetes mellitus without complication, without long-term current use of insulin E11.9 ; Dyslipidemia E78.5 ; Gastroesophageal reflux disease without esophagitis K21.9 ; History of CVA (cerebrovascular accident) Z86.73 ; PFO (patent foramen ovale) Q21.1 and Breast cancer screening Z12.39 [place] [address] [facility] [address] [place] [id number] 01/01/2024 [facility] [address] [place] [id number] 08/05/2024 Kendy Tompkins Assessments Encounter Date Diagnosis (ICD Code) Assessment Notes Treatment Notes Treatment Clinical Notes Section Notes 06/17/2024 Essential hypertension (ICD-10 - I10) 06/17/2024 Type 2 diabetes mellitus with other specified complication (ICD-10 - E11.69) 12/16/2024 Essential hypertension (ICD-10 - I10) 12/16/2024 Type 2 diabetes mellitus with other specified complication (ICD-10 - E11.69) 12/16/2024 Type 2 diabetes mellitus without complication, without long-term current use of insulin (ICD-10 - E11.9) 06/17/2024 Type 2 diabetes mellitus without complication, without long-term current use of insulin (ICD-10 - E11.9) 06/17/2024 Dyslipidemia (ICD-10 - E78.5) 12/16/2024 Dyslipidemia (ICD-10 - E78.5) 12/16/2024 Gastroesophageal reflux disease without esophagitis (ICD-10 - K21.9) 06/17/2024 Gastroesophageal reflux disease without esophagitis (ICD-10 - K21.9) 06/17/2024 History of CVA (cerebrovascular accident) (ICD-10 - Z86.73) 12/16/2024 History of CVA (cerebrovascular accident) (ICD-10 - Z86.73) 06/17/2024 PFO (patent foramen ovale) (ICD-10 - Q21.1) 12/16/2024 PFO (patent foramen ovale) (ICD-10 - Q21.1) 12/16/2024 Breast cancer screening (ICD-10 - Z12.39) Plan Of Treatment Pending Test Test Name Order Date Mammogram 12/16/2024 H-TSH 12/16/2024 H-Microalbumine/Creatinine 12/11/2023 H-Microalbumine/Creatinine 06/17/2024 H-Lipid Panel 12/16/2024 H-CMP 12/16/2024 H-Glycohemoglobin A1C 12/16/2024 H-Glycohemoglobin A1C 06/12/2023 Next Appt Details Provider Name:Kendy Grover et, 06/21/2025 01:45:00 PM, [address] [facility] [address] [facility], [address], [place], [place], [id number], Insurance Providers Payer Name Payer Address Payer Phone Subscriber Number Group Number Insured Name Patient Relationship to Insured Coverage Start Date Coverage End Date [employer] [address] [place] [address] [id number] [id number] Self - patient is the insured Medical (General) History Medical History History ICD Code Hypertension GERD Type 2 Diabetes Hyperlipidemia Lt MCA Stroke - [facility] PFO- [facility] Declines repeat C-scope: 11/2021; 05/2022 Declines BMD - 05/2022 Surgical History Surgery Date(Month/Year) RT Forearm Fatty Tumor Removed 2000 C-scope/ Dr. Whaley 2014 Basal cell carcinoma skin graft on tip o f nose - 05/2023 Hospitalization History Reason Date(Month/Year) Stroke, Paroxysmal A Fib 05/2019
--- OUTSIDE RECORDS SUMMARY | 2024-12-27 15:44 | XMS_ITS | Clinical Summary ---
Author Organization Healthcare Address [address] [place] [address] Care Team Providers Care Spudder Name Role Phone Unavailable Primary Care Provider Unavailabl e Social History Tobacco Use Types Packs/Day Years Used Date Smoking Tobacco: Never Assessed Comments Unknown Sex and Gender Information Value Date Recorded Sex Assigned at Not on file Legal Sex Female 7:43 PM EDT Gender Identity Not on file Sexual Orientation Not on file Plan of Treatment Not on file Insurance [place] [id number] ANTH
== END 2024-12-27 23:59 | disposition home or self-care (01) ==
LOC: RAD 15:42
PROVIDERS: PCP Family Medicine; Visit Provider Family Medicine
DX: Z12.31 Encounter for screening mammogram for malignant neoplasm of breast (principal); R92.323 Mammographic fibroglandular density, bilateral breasts
CPT/HCPCS: 77063; 77067

== ENCOUNTER 2025-01-26 10:17 | Outpatient (CLI) | payer BC, SELFPAY ==
[2025-01-26 11:25] LABS: Albumin Level 3.8 g/dl (3.5-5.0); Chloride 100 mmol/L (98-107); Potassium 4.4 mmoL/L (3.5-5.1); Sodium 136 mmol/L (136-145)
[2025-01-26 11:28] LABS: Alanine Aminotransferase 29 U/L (12-78); Albumin/Globulin Ratio 1.5 (1.1-1.8); Alkaline Phosphatase 111 U/L (38-126); Anion Gap 11.4 mEq/L (5-15); Aspartate Amino Transferase 30 U/L (14-36); Bilirubin,Total 0.8 mg/dl (0.2-1.3); Carbon Dioxide 29 mmol/L (22.0-30.0); Cholesterol 108 mg/dl (140-200); Globulin 2.5 g/dL (1.3-3.2); Total Protein,Serum 6.3 g/dl (6.3-8.2); Triglycerides 96 mg/dl (30-150)
[2025-01-26 11:29] LABS: Calcium 8.8 mg/dl (8.4-10.2); Glucose 99 mg/dl (74-100); HDL Cholesterol 45 mg/dl (40-60)
[2025-01-26 13:08] LABS: Blood Urea Nitrogen 14 mg/dl (7-17); Creatinine,Serum 0.80 mg/dl (0.52-1.04); Estimated Glomerular Filt Rate 72 ml/min (>60); GFR (African American) 87 ML/MIN (>60)
[2025-01-26 14:08] LABS: Hemoglobin A1C 5.9 % (4.0-6.0)
== END 2025-01-26 23:59 | disposition home or self-care (01) ==
LOC: LAB 10:17
PROVIDERS: PCP Family Medicine; Visit Provider Family Medicine
DX: E78.5 Hyperlipidemia, unspecified (principal); E11.69 Type 2 diabetes mellitus with other specified complication; I10 Essential (primary) hypertension
CPT/HCPCS: 36415; 80053; 80061; 83036